=== PATIENT | male | born 1985 | race Two or more races ===

== ENCOUNTER 2018-07-04 14:48 | Emergency (ER) | payer OTHER ==
[~2018-07-04] VITALS: Ht 167.6 cm; Wt 72.6 kg
[2018-07-04] MEDS ORDERED: MORPHINE SULFATE 4 MG/ML SYR/VIAL IV ONE ×2 (16:00→18:45)
[2018-07-04] MEDS ORDERED: PROMETHAZINE HCL 25 MG/ML 1ML IV ONE ×2 (16:00→18:45)
[2018-07-04] MEDS ORDERED: PROPOFOL 10 MG/ML 20 ML IV ONE (20:45)
[2018-07-04] MEDS ORDERED: ETOMIDATE (2MG/ML) 20ML VIAL IV ONE ×2 (20:58→21:00)
[2018-07-04] MEDS ORDERED: HYDROcodone-ACET 10/325MG TAB PO ONE (22:15)
[2018-07-04 22:55] VITALS: BP 129/77
== END 2018-07-04 23:03 | disposition home or self-care (01) ==
LOC: ER 14:50
DX: S42.301A Unspecified fracture of shaft of humerus, right arm, initial encounter for closed fracture (principal); Z90.89 Acquired absence of other organs; W19.XXXA Unspecified fall, initial encounter; Y93.89 Activity, other specified; Y99.8 Other external cause status; Y92.89 Other specified places as the place of occurrence of the external cause
CPT/HCPCS: 29105; 73060; 73070; 96374; 96375; 96376; 99284; J2270; J2550; J2704; 99152